=== PATIENT | female | born 1935 | race Caucasian/White ===

== ENCOUNTER 2017-10-28 02:54 | Inpatient (IN) | payer OTHER ==
[~2017-10-28] VITALS: Ht 152.4 cm; Wt 70.8 kg
[2017-10-28] VITALS (8 sets, daily range): BP systolic 100–179; BP diastolic 52–85
[~2017-10-28 02:54] MED LIST: ACETAMINOPHEN-1 EAC1 PO; AMBIEN 5 MG TABL5 M1 PO; ATORVASTATIN CA10 MG PO; BENTYL20 MG; CARDIZEM CD180 MG PO; CIPROFLOXACIN500 M1 PO; DILTIAZEM 24HR180 MG; DILTIAZEM ER120 M1; DOXEPIN 50MG CA50 M1 PO; FIBERCON625 M1 PO; FLEXERIL PO; HYDROCODON-ACE1 EAC2; HYDROCODON-ACE1 EAC7 PO; HYDROCODON-ACE1 EAC8; LOPERAMIDE 2 MG2 M1 PO; NORCO 5-325 TA1 EACH PO; PEPCID40 MG PO; RANITIDINE HCL300 M1 PO; REQUIP 1 MG TABL1 M1; ZANTAC 150MG T150 M1; ZANTAC 150MG T150 MG
[2017-10-28] MEDS ORDERED: CARVEDILOL3.125 MG PO (03:05)
[2017-10-28 03:26] LABS: ABSOLUTE EOSINOPHILS 0.1 thou/uL (0.0-0.7); ABSOLUTE LYMPHOCYTES 2.1 thou/uL (0.8-5.3); ABSOLUTE MONOCYTES 0.6 thou/uL (0.0-1.2); ABSOLUTE NEUTROPHILS 4.7 thou/uL (1.6-8.1); BASOPHILS 0.4 %; EOSINOPHILS 1.6 %; HEMATOCRIT 40.7 % (37.0-47.0); HEMOGLOBIN 12.8 gm/dL (12.0-15.0); LYMPHOCYTES 27.8 %; MCH 26.2 pg (26.0-34.0); MCHC 31.5 g/dL (28.0-37.0); MCV 83.2 fL (80.0-100.0); MONOCYTES 7.8 %; MPV 8.8 fl. (7.2-11.1); NUCLEATED RBCS 0 /100WBC; PLATELET COUNT* 138 thou/uL (150-400); POLYS 62.4 %; RDW-CV 15.7 % (10.5-14.5); WBC 7.5 thou/uL (4.0-11.0)
--- NOTE | 2017-10-28 03:29 | NUR ---
DR BO INFORMED OF BP DROP AFTER GIVING NTG SL FROM 179/84 TO 102/48
[2017-10-28 03:35] LABS: BUN 35 mg/dL (7-18); CALCIUM 8.6 mg/dL (8.5-10.1); CHLORIDE 105 mmol/L (98-107); CO2 29 mmol/L (21-32); CREATININE 0.9 mg/dL (0.6-1.3); GLUCOSE 108 mg/dL (70-99)
[2017-10-28 03:49] LABS: ALBUMIN 3.1 g/dL (3.4-5.0); ALKALINE PHOSPHATASE 88 U/L (46-116); LIPASE 279 U/L (73-393); NT-PRO BRAIN NAT PEPTIDE 1478 pg/mL (<300); SGOT 93 U/L (15-37); SGPT 46 U/L (30-65); TOTAL BILIRUBIN 0.4 mg/dL (<0.1-1.0); TOTAL PROTEIN 6.8 g/dL (6.4-8.2); TROPONIN-I LEVEL <0.06 ng/mL (<0.06)
[2017-10-28 04:09] LABS: ANION GAP 7 mmol/L (7-16); POTASSIUM 4.8 mmol/L (3.5-5.1); SODIUM 141 mmol/L (136-145)
[2017-10-28 04:15] LABS: URINE BILIRUBIN NEGATIVE (Negative); URINE BLOOD NEGATIVE (Negative); URINE CLARITY CLEAR; URINE COLOR YELLOW; URINE GLUCOSE-RANDOM NEGATIVE (Negative); URINE KETONES NEGATIVE (Negative); URINE LEUKOCYTES-REFLEX NEGATIVE (Negative); URINE NITRITE-REFLEX NEGATIVE (Negative); URINE PROTEIN NEGATIVE (Negative); URINE SPECIFIC GRAVITY 1.025 (1.005-1.030); URINE UROBILINOGEN 0.2 E.U./dl (0.2-1.0)
--- NOTE | 2017-10-28 04:48 | NUR ---
REC REPORT FROM ED FOLLOWS , A/O4, SR WITH PACEMAKER, 2L NC, PAIN 04/05 CURRENTLY, GIVEN NITRO SL X1 DUE TO CHEST PAIN, UNABLE TO ADMINISTER ADDITIONAL DUE TO BP DROPPED, 1 IN NITRO PASTE PLACED, ASPIRIN GIVEN PO, FENTANLY GIVEN VIA IV FOR CHEST PAIN WHICH TOOK PT PAIN FROM 07/06 TO 04/05, PT AT CT RIGHT NOW DUE TO ELEVATED D-DIMER, 20G RFA SL, TROPONIN NEGATIVE, RN IN ED WILL RE-ASSESS VS WHEN PT RETURNS FROM CT AND BRING HER TO ROOM 210.
--- NOTE | 2017-10-28 05:06 | NUR ---
DR BO INFORMED OF BP DROP FROM 114/60 TO 100/52 AFTER NTG 1" APPLIED TO RIGHT CHEST WALL. INSTRUCTED TO LEAVE PASTE ON.
[2017-10-28] MEDS ORDERED: REQUIP 0.25 M0.25 MG PO (06:03)
--- NOTE | 2017-10-28 09:32 | NUR ---
ASSUMED CARE OF PT THIS AM AROUND 0715- FIELD EDUCATION COORDINATOR IN PLACE ORDERED, V-PACED NOTED- UPON ASSESSMENT PT NOTED TO BE GROGGY, BUT AROUSABLE- PT A&O X4- CONTINENT OF BOWEL AND BLADDER- LIMIED ASSIST X1 WITH TRANSFERS- LCTA, RESP EVEN AND UN-LABORED- VSS, O2 SAT 99% ON 2L VIA NC- NO C/O CHEST PAIN OR DYSPNEA REPORTED THIS AM- ABDOMEN SOFT/ROUND/NON-TENDER, BS X4 QUADS- LAST BM REPORTED 10/26/17- PT CURRENLTY NPO, AWAITING CARDIOLOGY INPUT- NITRO NOTED TO CHEST THIS AM, REMOVED FOR TESTING INDICATED- CALL LIGHT AND PERSONAL BELONGINGS WITH IN REACH- HOURLY ROUNDS IN PLACE R/T SAFETY/NEEDS- ALL NEEDS MET AT THIS TIME-WCTM
--- NOTE | 2017-10-28 13:43 | EKG ---
[place] [address] ELECTROCARDIOGRAM REPORT Name: SHONNA KATHLEEN Room: [address] ADM IN M.R.#: [id number] Admission: 10/28/17 Attend Phys: Todd Lopez MD Discharge: Date of : 35 Report #: [id number] THIS REPORT FOR: //name// [facility] ED Test Date: 2017-10-28 Test Time: 02:59:45 Pat Name: SHONNA KATHLEEN Department: Room: [facility] Gender: F Legal Transcriber: STACY : 1935 Requested By: Melanie Degroot Order Number: [id number] MD: Eb Low Measurements Intervals [place] Rate: 85 P: 68 MA: 160 QRS: -54 QRSD: 108 T: 95 QT: 378 QTc: 450 Interpretive Statements Atrial-sensed ventricular-paced complexes No further analysis attempted due to paced rhythm Compared to ECG 11/22/2014 02:08:20 Sinus rhythm no longer present Left bundle-branch block no longer present Electronically Signed On 10-28-2017 13:43:46 FRAME ALIGNER by Eb Low [email or web address] <ELECTRONICALLY SIGNED> By: Eb Low MD, [facility] 10/28/17 1343 [phone] Eb Low MD, [facility] /EPI
--- NOTE | 2017-10-28 15:23 | NUR ---
CM ASSESSMENT: Pt is A&O. Resides at home alone. Independent with ADLs, continues to cook, clean and drive. Pt has a walker that she can use, but states that she hasn't started using it yet. Strong support sx. No hx of HH or SNF. Anticipates dc to home today, after cardiology reads report. Pt drove herself to the hospital and plans to drive herself home. No needs anticipated.
--- NOTE | 2017-10-28 15:42 | 2DMMODE ---
[place] [address] 2 D/M-MODE ECHOCARDIOGRAM Name: YRNREYES OLIVARESJERRY Room: [address] IN [facility]#: [id number] Admission: 10/28/17 Attend Phys: Todd Lopez, Discharge: Date of : 35 Date of Service: 10/28/17 1542 Report #: [id number] THIS REPORT FOR: //name// APPROVED REPORT Study performed: 10/28/2017 14:28:05 EXAM: Comprehensive 2D, Doppler, and color-flow Echocardiogram Patient Location: In-Patient Room #: 210 Status: routine BSA: 1.68 HR: 80 bpm BP: 152/84 mmHg Rhythm: NSR Other Information Study Quality: Good Indications Chest Pain 2D Dimensions LVEF(%): 21.12 (>50%) IVSd: 13.84 (7-11mm) LVOT Diam: 23.09 (18-24mm) LVDd: 40.36 mm PWd: 10.09 (7-11mm) LVDs: 36.54 (25-40mm) Aortic Root: 29.49 mm Narayanan's LVEF: 21.12 % Volumes Left Atrial Volume (Systole) LA ESV Index: 37.10 mL/m2 Aortic Valve AoV Peak Tee.: 1.76 m/s AO Peak Gr.: 12.39 mmHg LVOT Max P.13 mmHg AO Mean Gr.: 7.16 mmHg LVOT Mean P.53 mmHg LVOT Max V: 0.88 m/s AO V2 VTI: 32.50 cm LVOT Mean V: 0.56 m/s SHENG (VTI): 2.26 cm2 LVOT V1 VTI: 17.52 cm AI [place]: 3.25 m/s2 AI PHT: 414.14 [place] [address] 2 D/M-MODE ECHOCARDIOGRAM Name: SHONNA KATHLEEN Room: [address] IN .R.#: [id number] Admission: 10/28/17 Attend Phys: Todd Lopez, Discharge: Date of : 35 Date of Service: 10/28/17 1542 Report #: [id number] Mitral Valve E/A Ratio: 0.72 MV Decel. Time: 175.08 ms MV E Max Tee.: 0.76 m/s MV PHT: 50.77 ms MVA (PHT): 4.33 cm2 TDI E/Lateral E': 9.50 Lateral E' Tee.: 0.08 m/s Pulmonary Valve PV Peak Tee.: 1.25 m/s PV Peak Gr.: 6.28 mmHg Tricuspid Valve TR Peak Gr.: 30.16 mmHg RVSP: 35.00 mmHg Left Ventricle The left ventricle is normal size. There is normal LV segmental wall motion. Paradoxical septal motion consistent with conduction abnormality. Borderline concentric left ventricular hypertrophy. Left ventricular systolic function is normal. The left ventricular ejection fraction is within the normal range. LVEF is 60-65%. Grade I - abnormal relaxation pattern. Right Ventricle The right ventricle is normal size. The right ventricular systolic function is normal. Pacemaker lead is present in the right ventricle. Atria Left atrium is mildly dilated. The right atrium size is normal. Aortic Valve The aortic valve is normal in structure. Moderate aortic regurgitation. There is no aortic valvular stenosis. Mitral Valve The mitral valve is normal in structure. Trace mitral regurgitation. No evidence of mitral valve stenosis. Tricuspid Valve The tricuspid valve is normal in structure. The RVSP is 35-40 mmHg. Mild tricuspid [place]itation[place] [address] 2 D/M-MODE ECHOCARDIOGRAM Name: SHONNA KATHLEEN Room: [address]#: [id number] Admission: 10/28/17 Attend Phys: Todd Lopez, Discharge: Date of : 35 Date of Service: 10/28/17 1542 Report #: [id number] The pulmonary valve is normal in structure. There is no pulmonic valvular regurgitation. Great Vessels The aortic root is normal in size. IVC is normal in size and collapses with >50% inspiration Pericardium There is no pericardial effusion. <Conclusion> LVEF is 60-65%. Paradoxical septal motion consistent with conduction abnormality. Pacemaker lead is present in the right ventricle. Grade I - abnormal relaxation pattern. Left atrium is mildly dilated. There is no aortic valvular stenosis. Moderate aortic regurgitation. Trace mitral regurgitation. <ELECTRONICALLY SIGNED> By: Eb Low MD, FACC 10/28/17 [phone] Eb Low MD, FACC /INF
--- NOTE | 2017-10-28 17:06 | NUR ---
STRESS TEST AND ECHO COMPLETED THIS SHIFT ORDERED- PHONE CALL RECIEVED PER POLLO JULIEN RN OF NORMAL STRESS AND OKAY TO D/C- NOTIFIED WITH ORDERS RECIEVED FOR OKAY TO D/C- NO CHANES NOTED TO MEDICATIONS- PCP F/U IN 1 WEEK AND OWN CARDIOLOGY 4-6 WEEKS- CYCLE TOURING GUIDE D/C'D ALONG WITH IV TO RIGHT FA PRIOR TO D/C- EDUCATION/TACHING GIVEN TO PT, WITH ALL QUESTIONS AND CONCERNS ADDRESSED PRIOR TO D/C- BELONGINGS PACKED AND ACCUNTED FOR PER PT AND SENTN WITH PT AT TIME OF D/C- PT ESCORTED TO PERSONAL VEHICLE AT 1704 VAI VIA PER TECH- PT NOTED TO HAVE DROVE SELF TO ER AND ABLE TO DRIVE SELF AT THIS TIME- NO PROBLEMS TO NOTE AT TIME OF D/C
--- NOTE | 2017-10-28 17:37 | CARDNUC ---
[place] [address] CARDIAC NUCLEAR IMAGING REPORT Name: YRNELISEREYESGIANAIlia Room: [facility] IN [facility]#: [id number] Admission: 10/28/17 Attend Phys: Todd Lopez, Discharge: 10/28/17 Date of : 35 Date of Service: 10/28/17 1737 Report #: [id number] THIS REPORT FOR: //name// APPROVED REPORT Exam: Nuclear Stress Test Indication: Chest pain Patient Location: In-Patient Room #: 210 Stress Tech: Margarette Garcia Stress Nurse: Ariella Reich RN Ht: 5 ft 0 in Wt: 156 lbs BSA: 1.68 m2 BMI: 30.46 Medical History Medical History: HTN, Hyperlipidemia, ICD, CAD s/p HI Medications: Carvedilol, atorvastatin Allergies: PCN Cardiac Risk Factors: Age, FHX of CAD, HTN, Hyperlipidemia Previous Cardiac Procedures: ICD, Myocardial infarction Exercise History: Sedentary Stress Test Details Stress Test: Pharmacologic stress testing performed using 0.4 mg of regadenoson per 5 mL given IV over 10 seconds. Reason for pharmacologic stress test: physical limitation. HR Resting HR: 70 bpm Max Heart Rate (APMHR): 138 bpm Max HR Achieved: 96 bpm Target HR (85% APMHR): 117 bpm % of APMHR: 69 Recovery HR: 81 bpm BP Resting BP: 161/97 mmHg Max BP: 110/67 mmHg ECG Resting ECG: paced Stress ECG: paced Clinical Reason for Termination: Completed protocol Stress Symptoms: [place] [address] CARDIAC NUCLEAR IMAGING REPORT Name: SHONNA KATHLEEN Room: [address]#: [id number] Admission: 10/28/17 Attend Phys: Todd Lopez, Discharge: 10/28/17 Date of : 35 Date of Service: 10/28/17 1737 Report #: [id number] Exercise duration: 0 min sec Exercise capacity: 1.0 METs Stress ECG Conclusion nondiagnostic NM EXAM: Myocardial Perfusion REST/STRESS Imaging Protocol: Rest Tc-99m/Stress Tc-99m 1 day Resting Data Rest SPECT myocardial perfusion imaging was performed in supine position 30 minutes following the intravenous injection of 11.4 mCi of Tc-99m Sestamibi. Time of rest injection: 1205 Time of rest imagin The images were gated to evaluate regional wall motion and calculate left ventricular ejection fraction. Administration Route: IV Administration Site: Right AC Pharmacologic Stress Pharmacologic stress test was performed by injecting Regadenoson 0.4 mg IV push followed by the intravenous injection of mCi of Tc-99m Sestamibi. Time of stress injection: 1340 Time of stress imagin Administration Route: IV Administration Site: Right AC Heart Rate at time of stress injection: 96 bpm. Gated Stress SPECT was performed 40 minutes after stress injection. The images were gated to evaluate regional wall motion and calculate left ventricular ejection fraction. Study Data At rest, the left ventricular ejection fraction was 56%.. Post stress, the left ventricular ejection was 55%.. TID = 0.99. Perfusion Review of rest data reveals normal perfusion, without perfusion defects.Imaging obtained following vasodilator stress demonstrate a similar, uniform uptake of tracer without defects. Prone imaging was normal. LVEDV is normal.No segental wall motion abnormality seen. Images were reviewed [place] [address] CARDIAC NUCLEAR IMAGING REPORT Name: SHONNA KATHLEEN Room: [address] IN [facility]#: [id number] Admission: 10/28/17 Attend Phys: Todd Lopez, Discharge: 10/28/17 Date of : 35 Date of Service: 10/28/17 1737 Report #: [id number] Wall Motion normal wall motion Nuclear Conclusion ECG Findings: non-diagnostic Clinical Findings: negative for ischemia Nuclear Findings: negative for ischemia Exercise Capacity: not assessed Left Ventricular Function: normal Risk Study: low Normal pefusion nuclear stress test. <Conclusion> nondiagnostic <ELECTRONICALLY SIGNED> By: Eb Low MD, FACC 10/28/17 [phone] Eb Low MD, [facility] /INF
--- NOTE | 2017-11-04 09:43 | CON ---
[address] [address] CONSULTATION Name: YRNELISEREYESJERRY Room: [address] IN M.R.#: [id number] Admission: 10/28/17 Attend Phys: Todd Lopez MD Discharge: 10/28/17 Date of : 35 Report #: [id number] THIS REPORT FOR: //name// CC: Jonathan Lopez DATE OF SERVICE: 10/28/2017 CHIEF COMPLAINT: Chest pain. HISTORY OF PRESENT ILLNESS: The patient is an 82-year-old woman with a history of coronary artery disease and an ICD, she had a 2-hour episode of a central to left-sided chest discomfort which occurred at rest. It was nonradiating. It did not occur with meals. It was not associated with shortness of breath or diaphoresis. She presented with a paced rhythm and was admitted for evaluation and her serial cardiac troponin levels have been negative for an acute myocardial infarction. This morning, she is chest pain free. She has not been short of breath. She denies weight gain or orthopnea. She denies palpitations, syncope or presyncope. She denies any ICD discharges. She has been compliant with her medical therapies. This morning, she is not having any upper neck, jaw discomfort or upper back pain. There was concern for a pulmonary embolus. Overnight, she had a CTA of the chest, which was negative for pulmonary embolus. She has a history of an ICD device implanted at [facility] by Dr. Moya, details are not available at this time. She had been catheterized in 2007 at this institution and had only minimal coronary artery disease. In 2007, she did have an ostial 50% LAD stenosis and she cannot recall the last time she had had a stress test. She has hypertension, hyperlipidemia. HOME MEDICATIONS: Include atorvastatin 5 mg at bedtime, carvedilol 3.125 mg p.o. b.i.d., Flexeril p.r.n., Tylenol, hydrocodone p.r.n., Robinul p.r.n. t.i.d. and fiber supplements. ALLERGIES: She [place] [address] CONSULTATION Name: SHONNA KATHLEEN Room: [address]#: [id number] Admission: 10/28/17 Attend Phys: Todd Lopez MD Discharge: 10/28/17 Date of : 35 Report #: [id number] PAST SURGICAL HISTORY: She has had 5 foot surgeries, appendectomy, gallbladder, colon resection, ICD implantation. SOCIAL HISTORY: She is . She is a nonsmoker, does not drink. ALLERGIES: She has no known drug allergies. REVIEW OF SYSTEMS: CENTRAL NERVOUS SYSTEM: No seizures, paralysis, numbness or weakness. GENERAL: No weight loss. RESPIRATORY: No cough or sputum production, no emphysema or asthma. CARDIOVASCULAR: No palpitations. Positive chest discomfort, positive dyspnea on exertion, which is more chronic and not worsening. Positive edema intermittently. No history of orthopnea or PND. ENDOCRINE: No diabetes or thyroid problems. GASTROINTESTINAL: No vomiting, vomiting blood or ulcers, jaundice, hepatitis. No hematemesis or melena. GENITOURINARY: No dysuria or hematuria. HEMATOLOGIC: No anemia or bleeding disorders. ALLERGIES: There are no seasonal allergies. No medical allergies. No aspirin allergies. No contrast or dye allergies. PSYCHIATRIC: No depression or anxiety. MUSCULOSKELETAL: Positive arthritis. SKIN: No rashes. EYES: She does use glasses. EARS, NOSE, THROAT AND MOUTH: Positive decreased hearing, positive dentures. PHYSICAL EXAMINATION: VITAL SIGNS: Blood pressure is 152/84 with a heart rate of 83, temperature is 36.3, respiratory rate is 20. GENERAL: Pleasant, mildly obese, elderly female. She is alert, oriented, no apparent distress. HEENT: Eyes; EOMs are intact. No facial asymmetry. NECK: Supple. No jugular venous distention. Sclerae are anicteric. Mouth: Oral mucosa is moist. NECK: Supple. No jugular venous distention. Carotid upstrokes are normal. I cannot hear bruits. CARDIOVASCULAR: Regular, I cannot hear a murmur or S3. LUNGS: Clear to auscultation. ABDOMEN: Soft, nontender. EXTREMITIES: There is no peripheral edema. SKIN: Warm and dry. PSYCHIATRIC: The patient has appropriate mood and affect. LABORATORY DATA: ECG demonstrates she is sinus rhythm with a V-paced rhythm, all ECGs. Hemoglobin is 12.8, white blood cell count 7.5, platelet count is [facility] [address] [place] [address] CONSULTATION Name: SHONNA KATHLEEN Room: [address]#: [id number] Admission: 10/28/17 Attend Phys: Todd Lopez MD Discharge: 10/28/17 Date of : 35 Report #: [id number] 138,000. Sodium is 141, potassium 4.8, chloride is 105, CO2 is 29, BUN is 35, creatinine is 0.9. Chest x-ray revealed mild basilar atelectasis, no heart failure. IMPRESSION AND PLAN: 1. Chest discomfort. Symptoms are somewhat atypical for angina. She does have a history of at least moderate coronary artery disease based on a 2007 cardiac catheterization. She has ruled out for an acute myocardial infarction. Her ECG is nondiagnostic because of a paced rhythm. I have arranged for further evaluation with a Lexiscan stress test. If this is negative, she can routinely follow up with her usual molecular pathologist. 2. Status post ICD/permanent pacemaker. At this point in time, she has a baseline underlying paced rhythm with underlying sinus rhythm and denies any defibrillator discharges. Apparently, she is scheduled for an ICD check later this month with her usual molecular pathologist. I see no evidence of device malfunction on the available telemetry. 3. Hypertension. Blood pressure is stable. 4. Coronary artery disease as noted above. We will arrange for further evaluation of her symptoms with a pharmacologic stress test. <ELECTRONICALLY SIGNED> By: Eb Low MD, FACC 11/04/17 0943 0953 [id number] Low MD, FACC /nt
== END 2017-10-28 17:05 | disposition home or self-care (01) | DRG 392 ==
LOC: M.ERS 02:54 → M.2W 03:55 → M.TBA-ER 03:55 → M.2W 04:33
PROVIDERS: Emergency Medicine; ADMIT Internal Medicine
PROC: B24BZZ4 Ultrasonography of Heart with Aorta, Transesophageal (ICD-10-PCS; principal; 2017-10-28)
DX: K21.9 Gastro-esophageal reflux disease without esophagitis (principal); I50.32 Chronic diastolic (congestive) heart failure; I25.10 Atherosclerotic heart disease of native coronary artery without angina pectoris; K22.4 Dyskinesia of esophagus; E78.5 Hyperlipidemia, unspecified; E66.9 Obesity, unspecified; Z68.30 Body mass index [BMI] 30.0-30.9, adult; Z90.49 Acquired absence of other specified parts of digestive tract; Z90.710 Acquired absence of both cervix and uterus; I25.2 Old myocardial infarction; Z95.810 Presence of automatic (implantable) cardiac defibrillator; Z23 Encounter for immunization; Z86.711 Personal history of pulmonary embolism; Z87.01 Personal history of pneumonia (recurrent); Z86.14 Personal history of Methicillin resistant Staphylococcus aureus infection; Z79.899 Other long term (current) drug therapy; Z88.0 Allergy status to penicillin